=== PATIENT | female | born 1990 | race Two or more races ===

== ENCOUNTER 2019-11-07 10:51 | Outpatient (CLI) | payer OTHER ==
[2019-11-07] MEDS ORDERED: None at this Time (11:55)
== END 2019-11-07 23:59 | disposition home or self-care (01) ==
LOC: STAR 10:51
PROVIDERS: ATTEND Specialist
DX: Z02.9 Encounter for administrative examinations, unspecified (principal)

== ENCOUNTER 2019-11-15 10:45 | Day surgery (SDC) | payer OTHER ==
[~2019-11-15] VITALS: Ht 157.5 cm; Wt 51.0 kg
[~2019-11-15 10:45] MED LIST: None at this Time
[2019-11-15 11:22] VITALS: BP 113/79
[2019-11-15] MEDS ORDERED: BUPIVACAINE/PF-EPI 0.25% 1:200K ONE (11:26)
[2019-11-15] MEDS ORDERED: CHLORHEXIDINE 15 ML UDC ONE (11:29)
[2019-11-15] MEDS ORDERED: CHLORHEXIDINE 15 ML UDC MM ONE (11:30)
[2019-11-15 11:33] LABS: HCG UR SG 1.018 (1.003-1.030)
[2019-11-15] MEDS ORDERED: LACTATED RINGERS 1,000 ML IV SCH (11:40)
[2019-11-15] MEDS ORDERED: FENTANYL PF 100 MCG/2ML ONE (11:55)
[2019-11-15] MEDS ORDERED: MIDAZOLAM 1 MG/ML, 2ML ONE (11:55)
[2019-11-15] MEDS ORDERED: ONDANSETRON 2MG/ML, 2ML ONE (12:01)
[2019-11-15] MEDS ORDERED: DEXAMETHASONE 4 MG/ML, 1ML ONE (12:01)
[2019-11-15] MEDS ORDERED: PROPOFOL 50 ML ONE (12:08)
[2019-11-15] MEDS ORDERED: KETOROLAC 30 MG/1 ML ONE (12:11)
[2019-11-15] MEDS ORDERED: ROCURONIUM 10MG/ML,5ML ONE (12:11)
[2019-11-15] MEDS ORDERED: SUGAMMADEX 200 MG/2 ML IVPush ONE (12:11)
[2019-11-15] MEDS ORDERED: ALBUTEROL SULFATE 2.5 MG/3 ML NPPB PRN (13:00)
[2019-11-15] MEDS ORDERED: LABETALOL 5MG/ML, 20ML IV PRN (13:00)
[2019-11-15] MEDS ORDERED: DIAZEPAM 5 MG/ML, 2ML IVPush PRN (13:00)
[2019-11-15] MEDS ORDERED: PROMETHAZINE 25 MG/ML, 1ML IV PRN (13:00)
[2019-11-15] MEDS ORDERED: MEPERIDINE/PF 25MG/0.5ML IVPush PRN (13:00)
[2019-11-15] MEDS ORDERED: ACETAMINOPHEN 325 MG TABLET PO PRN (13:00)
[2019-11-15] MEDS ORDERED: hydrALAzine 20 MG/ML, 1ML IV PRN (13:00)
[2019-11-15] MEDS ORDERED: HYDROmorphone 2 MG/ML, 1ML IVPush PRN (13:00)
[2019-11-15] MEDS ORDERED: OXYcodone 5 MG/5 ML ORAL.SOL UDC PO PRN (13:00)
[2019-11-15] MEDS ORDERED: FENTANYL PF 100 MCG/2ML IV PRN (13:00)
[2019-11-15] MEDS ORDERED: ACETAMINOPHEN 650 MG/20.3 ML UDC ONE (13:18)
[2019-11-15] MEDS ORDERED: OXYcodone 5 MG/5 ML ORAL.SOL UDC ONE (13:19)
== END 2019-11-15 15:45 | disposition home or self-care (01) ==
LOC: OUT 10:45
PROVIDERS: ATTEND Specialist
DX: Z30.2 Encounter for sterilization (principal); Z11.59 Encounter for screening for other viral diseases; J45.909 Unspecified asthma, uncomplicated; Z88.8 Allergy status to other drugs, medicaments and biological substances; Z82.61 Family history of arthritis
CPT/HCPCS: 36415; 58670; 81025; 87635; J1100; J1885; J2250; J2405; J2704; J3010; J7120